=== PATIENT | male | born 1960 | race Caucasian/White ===

== ENCOUNTER 2024-02-02 17:45 | Emergency (ER) | payer MEDICAID ==
[~2024-02-02] VITALS: Ht 165.1 cm; Wt 68.0 kg
[2024-02-02 18:04] VITALS: BP_SYST 101; PULSE 74; RESP 18; TEMP 97.9; O2SAT 97
[2024-02-02] MEDS: HYDROcodone/ACETAMIN 5-325 MG TAB (NORCO/ VICODIN) PO ONE (18:51)
[2024-02-02] MEDS ORDERED: IBUP-1969 PO (20:08)
[2024-02-02 20:23] VITALS: BP_SYST 112; PULSE 65; RESP 18; TEMP 97.9; O2SAT 97
== END 2024-02-02 20:23 | disposition home or self-care (01) ==
LOC: SED 17:45
DX: M77.8 Other enthesopathies, not elsewhere classified (principal); M25.521 Pain in right elbow; Z79.899 Other long term (current) drug therapy
CPT/HCPCS: 99283